=== PATIENT | male | born 1975 | race Caucasian/White ===

== ENCOUNTER 2020-03-31 10:17 | Emergency (ER) | payer OTHER, SELFPAY ==
[2020-03-31 10:29] VITALS: BP 173/102; PULSE 83; RESP 18; TEMP 36.6; O2SAT 94; BMI 48.1
--- NOTE | 2020-03-31 10:44 | CTR_ITS ---
PROCEDURE INFORMATION: Exam: CT Lumbar Spine Without Contrast Exam date and time: 03/31/2020 11:10 AM Age: 44 years old Clinical indication: Low back pain; Additional info: Lbp, sciatica left TECHNIQUE: Imaging protocol: Computed tomography images of the lumbar spine without contrast. Radiation optimization: All CT scans at this facility use at least one of these dose optimization techniques: automated exposure control; mA and/or kV adjustment per patient size (includes targeted exams where dose is matched to clinical indication); or iterative reconstruction. COMPARISON: No relevant prior studies available. RADIATION DOSE METRICS: Total DLP (mGy-cm): 3013.64 FINDINGS: Vertebrae: No acute fracture. Normal alignment. Few small osteophytes are present on the vertebral bodies. Discs/Spinal canal/Neural foramina: No significant disc protrusion. No significant spinal canal stenosis. No significant neural foraminal narrowing. Soft tissues: Unremarkable. CT/CT lumbar spine wo con* [id number] IMPRESSION: No significant abnormalities. Radiation Dose CTDIVOL = (mGy): DLP = 3013.64 (mGy-cm)
--- NOTE | 2020-03-31 10:48 | ED_ITS ---
HPI - Back Pain/Injury General: Chief Complaint: Back Pain/Injury Stated Complaint: BACK PAIN Time Seen by Provider: 03/31/20 10:23 Source: patient Mode of arrival: ambulatory Limitations: no limitations History of Present Illness: HPI Narrative: 44-year-old male patient presents to the emergency department with 6-day onset of low back pain. He has seen 3 different providers this past week for his pain. Reports went for a walk on Wednesday, 6 days ago when he felt a twinge in his back. He reports onset of severe back pain Wednesday, was prescribed muscle relaxers, was intolerant to the medication with return to his primary care provider on Wednesday. He received a steroid injection which helped. Pain worsened on Wednesday with return to his primary care at [facility], prescribed steroids which has not helped. He reports continued pain with walking, states cannot find a comfortable position. Reports pain with twisting bending. Report has to work tomorrow and is con cerned with his pain. He states pain radiates to the left groin/hip. He denies radiculopathy symptoms. Reports [id number] diabetic. He denies fever chills or urinary symptoms. He reports has attempted [id number] Lidoderm patches, Biofreeze, warm/cool compresses. MD elicited complaint: back pain Onset (ago): day(s) (6) Timing: constant and progressively worsening Severity: moderate Similar Symptoms Previously: Yes Quality: dull and aching Location: lumbar spine Radiation: groin Exacerbating factors: movement, supine positioning, sitting upright and walking Relieving factors: none Associated symptoms: Reports difficulty walking and tingling/numbness/burning; Deny abdominal pain, chills, dysuria, fever(s), nausea, urinary urgency or vomiting Review of Systems General: Reports: 10 or more systems reviewed and unremarkable except in HPI and below Const: Denies: fever(s), chills or diaphoresis Eyes: Denies: blurry vision or eye redness ENMT: Denies: throat pain, dental pain or disequilibrium Card: Denies: chest pain, palpitations or irregular heart rhythm Resp: Denies: dyspnea, productive cough, non-productive cough or wheezing GI: Denies: abdominal pain, nausea or vomiting : Denies: difficulty urinating, dysuria or urinary urgency Musc: Reports: back pain and limited range of motion; Denies: neck pain or muscle weakness Skin/Breast: Denies: rash or pruritus Neuro: Reports: difficulty walking; Denies: numbness in extremities, weakness in extremities or frequent falls Psych: Denies: anxiety or depression Agustín/Lymph: Denies: easy bruising Physical Exam Const: COMMON NORMALS: no acute distress, patient oriented x3, healthy appearing and alert GENERAL APPEARANCE: cooperative, anxious and well hydrated NUTRITIONAL APPEARANCE: obese ORIENTATION/CONSCIOUSNESS: Yes awake, Yes oriented to person, Yes oriented to place and Yes oriented to time HENMT: COMMON NORMALS: normocephalic, Normal external nose present and moist oral mucous membranes HEAD & SCALP: normocephalic NOSE: Normal external nose present Eye: COMMON NORMALS: Equal, round and reactive pupils present and EOMs intact bilaterally GENERAL EYE: appearance normal, both eyes and all related structures PUPIL: Yes Equal, round and reactive pupils present Neck/C-Spine: COMMON NORMALS: full ROM and no lymphadenopathy GENERAL: Yes normal visual inspection and Yes trachea midline CERVICAL SPINE: Yes cervical ROM normal Lymph: LYMPHATIC: no lymphadenopathy noted Chest: COMMONS NORMALS: normal inspection of the chest Resp: COMMON NORMALS: normal respiratory effort and clear to auscultation bilaterally EFFORT & INSPECTION: Yes able to speak in complete sentences AUSCULTATION: clear to auscultation bilaterally Cardio: COMMON NORMALS: regular rhythm, S1 normal heart sound present, S2 normal heart sound present and Peripheral pulses 2+ throughout RHYTHM: regular rhythm HEART SOUNDS: S1 normal heart sound present and S2 normal heart sound present PERIPHERAL PULSES: Peripheral pulses 2+ throughout GI: COMMON NORMALS: Normal to inspection, nondistended, normoactive bowel sounds present, Soft to palpation and non-tender INSPECTION: Yes normal to inspection PALPATION: Yes Soft to palpation : COMMON NORMALS: Yes no CVA tenderness BLADDER/KIDNEY EXAM: Yes no CVA tenderness and No CVA tenderness Back/Pelvis: COMMON NORMALS: no CVA tenderness and thoracic and lumbar spine normal to inspection GENERAL BACK: No CVA tenderness THORACIC SPINE/UPPER BACK: Yes normal to inspection and Yes thoracic ROM normal LUMBAR SPINE/LOWER BACK: Yes ROM limited, Yes pain with ROM, Yes lumbar spinal tenderness, Yes paraspinal muscle spasm Lumbar paraspinal muscle spasm: left and Yes straight leg raise positive left PELVIS: Yes buttocks normal SACROILIAC JOINTS: Yes SI joints normal SACRUM: no ecchymosis Extremity: COMMON NORMALS: normal to inspection and capillary refill normal Neuro: KT COMA SCALE: document GCS findings Kt coma scale eye opening: Spontaneous Farrar coma scale verbal response: Orientated Farrar coma scale motor response: Obey commands Farrar coma scale total score: 15 COMMON NORMALS: patient oriented x3 and no focal motor deficits SENSORIUM/ORIENTATION: Yes alert, Yes oriented to person, Yes oriented to place and Yes oriented to time SPEECH: speech normal GAIT: Yes Normal gait present MONOFILAMENT EXAM PERFORMED: Yes Monofilament Exam (small fiber function): L great toe: normal, L 3rd toe: normal, L 5th toe: normal, R great toe: normal, R 3rd toe: normal and R 5th toe: normal MOTOR EXAM: 5/5 motor strength present throughout Psych: COMMON NORMALS: mental status grossly normal, Normal thought process present and cooperative ACTIVITY/MOTOR BEHAVIOR: Yes appropriate eye contact THOUGHT PROCESS: Normal thought process present Skin: COMMON NORMALS: no rashes or lesions noted and turgor normal GENERAL SKIN EXAM: no rashes or lesions noted and turgor normal Course ED course: 44-year-old male presents to the emergency department with low back pain x6 days. Previous evaluation by [facility] medical staff x3 this past week. Currently on Medrol Dosepak. He is diabetic. Previously attempted cyclobenzaprine but was not able to tolerate it due to sedative effects. Negative neuropathy symptoms. Monofilament exam normal, CT scan did not reveal stenosis or disc protrusion. Hydrocodone and IM Norflex administered here in the ED, pain improved. Advised to follow-up with his primary care physician next week. Will limit activities such as no bending or twisting at the waist, no prolonged standing or sitting, 10 pound weight restriction with lifting. Discussion with the patient regarding low back pain as well as to continue with therapy as recommended by his primary care provider, results of CT scan discussed. Vital Signs: Vital signs: Vital Signs Temperature 97.9 F 03/31/20 10:29 Pulse Rate 93 03/31/20 12:16 Respiratory Rate 18 03/31/20 12:16 Blood Pressure 151/87 03/31/20 12:16 Pulse Oximetry 98 03/31/20 12:16 MDM - Back Pain/Injury Imaging Data^: Other Imaging: Radiologist's impression: [facility] [address] [place] [address] CT Scan Report Signed Patient: Hayder Laureano Unit #: [id number] : 1975 Age/Sex: 44 / M ADM Date: 03/31/20 Loc: ER Room/Bed: Attending Dr: Ordering Provider/Ordering MD: Nicole Issa Date of Service: 03/31/20 Procedure(s): CT lumbar spine wo con* [id number] Accession Number(s): [id number] Report Number: [id number] PROCEDURE INFORMATION: Exam: CT Lumbar Spine Without Contrast Exam date and time: 03/31/2020 11:10 AM Age: 44 years old Clinical indication: Low back pain; Additional info: Lbp, sciatica left TECHNIQUE: Imaging protocol: Computed tomography images of the lumbar spine without contrast. Radiation optimization: All CT scans at this facility use at least one of these dose optimization techniques: automated exposure control; mA and/or kV adjustment per patient size (includes targeted exams where dose is matched to clinical indication); or iterative reconstruction. COMPARISON: No relevant prior studies available. RADIATION DOSE METRICS: Total DLP (mGy-cm): 3013.64 FINDINGS: Vertebrae: No acute fracture. Normal alignment. Few small osteophytes are present on the vertebral bodies. Discs/Spinal canal/Neural foramina: No significant disc protrusion. No significant spinal canal stenosis. No significant neural foraminal narrowing. Soft tissues: Unremarkable. CT/CT lumbar spine wo con* [id number] IMPRESSION: No significant abnormalities. Radiation Dose CTDIVOL = (mGy): DLP = 3013.64 (mGy-cm) Dictated By: Diaz Camilo Signed By: Diaz Camilo Signed Date/Time: 03/31/20 1140 DD/ 1138 Discharge Plan Discharge Patient Disposition: Home Clinical Impression: Strain of lumbar region, Acute lumbar back pain Condition: Stable Prescriptions: New Robaxin-750 750 mg tablet 750 mg PO TID Qty: 14 RF: 0 Lidoderm 5 % adhesive patch,medicated 1 patch TOPICAL .BID Qty: 15 RF: 0 Discharge Orders: Discharge Order (Routine); Ordered 03/31/20 Ordered By: Nicole Issa Referrals: John Perez MD [Family Provider] - Discharge Diet: Usual diet Discharge Activity: Limit activity as instructed Patient Instructions: Low Back Strain (ED), Acute Low Back Pain (ED) Activity Restrictions/Additional Instructions: Follow-up with Dr. Perez next week Continue steroids as prescribed Avoid long periods of sitting/standing Return to the emergency department if you develop leg weakness, leg pain or bowel or urinary incontinence Use massage therapy such as a tennis ball to rub the area, apply warm moist heat and alternate with cool compresses to help with pain May continue with Biofreeze to the area as needed, Lidoderm patches have been prescribed to you, may change twice daily, wait 1 hour between each application Continue with therapy as prescribed by your primary care provider Tylenol, 500 mg tablets, take 2 tablets 3 times daily as needed for pain, do not take more than this amount as liver toxicity can occur Continue meloxicam Do not drive or operate machinery with use of Robaxin due to sedative effects that can occur Stand Alone Forms: Work/School Release Discharge Date/Time: 03/31/20 12:19 Coding Level of Care Code ED Telecommunication Equipment Repairer for Chg Fwd Exam Comprehensive
[2020-03-31] MEDS: HYDROcodone-acetaminophen 5-325 mg Tablet 1 TAB PO (11:14)
[2020-03-31] MEDS: orphenadrine 30 mg/mL Inj 2 mL 60 MG IM (11:15)
[2020-03-31 12:16] VITALS: BP 151/87; PULSE 93; RESP 18; O2SAT 98
== END 2020-03-31 12:19 | disposition home or self-care (01) ==
PROVIDERS: Emergency Provider Nurse Practitioner Family; Family Provider Family Medicine
DX: S39.012A Strain of muscle, fascia and tendon of lower back, initial encounter (principal); X58.XXXA Exposure to other specified factors, initial encounter
CPT/HCPCS: 12345; 72131; 96372; 99282; 99283; J2360

== ENCOUNTER → 2022-05-21 13:38 | Outpatient (BNVA) | payer OTHER, SELFPAY | PROVIDERS: Family Provider Family Medicine; PCP Family Medicine; Referring Provider Family Medicine; Visit Provider Student in an Organized Health Care Education/Training Program | DX: M25.532 Pain in left wrist (principal) | CPT/HCPCS: 73110 ==

== ENCOUNTER 2022-05-29 01:40 | Emergency (ER) | payer OTHER, SELFPAY ==
[2022-05-29 01:45] VITALS: BP 167/100; PULSE 100; RESP 18; TEMP 36.9; O2SAT 96; BMI 49.4
[2022-05-29 01:48] VITALS: BP 170/113; PULSE 103; RESP 22; O2SAT 95
--- NOTE | 2022-05-29 01:55 | ED_ITS ---
HPI - Back Pain/Injury General: Chief Complaint: Back Pain/Injury Stated Complaint: Lower Back Time Seen by Provider: 05/29/22 01:41 History of Present Illness: Patient is a 46-year-old male comes the ED with back pain. Patient has history of chronic lower back pain and sciatica. He states that yesterday he bent over to let his dogs out and felt a pain in his lower back. Most of the pain is on the left side of his lower back and radiates down to his left thigh. He rates the pain currently 9 out of 10. He has taken some ibuprofen earlier today and it has not helped. Pain worsens with any movement of torso. Denies any fall or trauma. Denies any bladder or bowel incontinence, pelvic anesthesia or weakness to lower extremities. Associated symptoms: Deny abdominal pain, chills, dysuria, fatigue, fever(s), hematuria, nausea or vomiting Review of Systems Const: Denies: fever(s), chills or fatigue Eyes: Denies: change in vision or eye discomfort ENMT: Denies: throat pain, odynophagia, nasal discharge or nasal congestion Card: Denies: chest pain, palpitations, edema, swelling of feet/ankles, dyspnea on exertion or orthopnea Resp: Denies: dyspnea, productive cough or non-productive cough GI: Denies: abdominal pain, nausea, vomiting, diarrhea, constipation or hematochezia : Denies: flank pain, difficulty urinating, dysuria or hematuria Musc: Reports: back pain; Denies: neck pain or extremity swelling Skin/Breast: Denies: rash or new lesions Neuro: Denies: headache(s), numbness in extremities or weakness in extremities [facility] ED PFSH: Medical History Arthritis of carpometacarpal (CMC) joint of left thumb Physical Exam Const: COMMON NORMALS: patient oriented x3 HENMT: COMMON NORMALS: normocephalic HEAD & SCALP: normocephalic MOUTH: Normal oral and palatal mucosa present THROAT: posterior oropharynx normal and uvula midline Neck/C-Spine: COMMON NORMALS: supple GENERAL: Yes normal visual inspection Resp: COMMON NORMALS: normal respiratory effort, No retractions, No use of accessory muscles and clear to auscultation bilaterally AUSCULTATION: clear to auscultation bilaterally Cardio: COMMON NORMALS: regular rate, regular rhythm, S1 normal heart sound present, S2 normal heart sound present, No gallops present (Cardio), No clicks present (Cardio), No murmurs present (Cardio) and Peripheral pulses 2+ throughout RATE: regular rate RHYTHM: regular rhythm HEART SOUNDS: S1 normal heart sound present and S2 normal heart sound present PERIPHERAL PULSES: Peripheral pulses 2+ throughout GI: COMMON NORMALS: Normal to inspection, nondistended, normoactive bowel sounds present, Soft to palpation, non-tender and no masses PALPATION: Yes Soft to palpation : COMMON NORMALS: Yes no CVA tenderness BLADDER/KIDNEY EXAM: Yes no CVA tenderness Back/Pelvis: COMMON NORMALS: no CVA tenderness LUMBAR SPINE/LOWER BACK: Yes pain with ROM, No lumbar spinal tenderness and Yes paraspinal muscle tenderness Lumbar paraspinal muscle tenderness: left left lumbar paraspinal muscle tenderness: L4 and L5 Extremity: COMMON NORMALS: normal to inspection Neuro: COMMON NORMALS: patient oriented x3 GAIT: Yes Normal gait present Skin: GENERAL SKIN EXAM: dry skin Course Vital Signs: Vital signs: Vital Signs Temperature 98.4 F 05/29/22 01:45 Pulse Rate 103 H 05/29/22 01:48 Respiratory Rate 22 H 05/29/22 01:59 Blood Pressure 170/113 05/29/22 01:48 Pulse Oximetry 98 05/29/22 01:59 Oxygen Delivery Me thod 05/29/22 01:48 MDM - Back Pain/Injury Medical Decision Making Patient is a 46-year-old male comes the ED with back pain. Patient has history of chronic lower back pain and sciatica. He states that yesterday he bent over to let his dogs out and felt a pain in his lower back. Most of the pain is on the left side of his lower back and radiates down to his left thigh. He rates the pain currently 9 out of 10. He has taken some ibuprofen earlier today and it has not helped. Pain worsens with any movement of torso. Denies any fall or trauma. Denies any bladder or bowel incontinence, pelvic anesthesia or weakness to lower extremities. Vitals are stable. Patient has lumbar paraspinal muscle tenderness on the left side at the L4-L5 region. Rest of exam is benign. Patient was given a shot of morphine, muscle relaxer and steroid here in the ED and his symptoms improved. He was diagnosed with back pain and stable for discharge home. Sent home with a prescription for NSAID, steroid and muscle relaxer. Told to follow-up with PCP in the next week for reevaluation. Return to ED precautions given. Patient understood and agreed with plan. Discharge Plan Discharge Patient Disposition: Home Clinical Impression: Back pain Condition: Stable Prescriptions: New cyclobenzaprine 10 mg tablet 10 mg PO BID PRN (Reason: muscle spasm) Qty: 20 0RF prednisone 20 mg tablet 20 mg PO BID 3 Days Qty: 6 0RF ibuprofen 800 mg tablet 800 mg PO Q8H PRN (Reason: pain) Qty: 30 0RF No Action Robaxin-750 750 mg tablet 750 mg PO TID Qty: 14 0RF Rx Instructions: take 1 PO TID PRN muscle spasm Lidoderm 5 % adhesive patch,medicated 1 patch TOPICAL .BID Qty: 15 0RF Rx Instructions: leave on most painful area for up to 12 hrs - leave off 1 hour between application Discharge Orders: Discharge ED (Routine); Ordered 05/29/22 Ordered By: Addison Doe Referrals: John Perez MD [Primary Care Provider] - Discharge Diet: Regular Discharge Activity: Increase activity as tolerated Patient Instructions: Back Pain (ED) Activity Restrictions/Additional Instructions: Follow-up with medical provider as directed in the next 5 to 7 days for reevaluation. Take medications as prescribed. Here prednisone can cause her blood sugars to elevate so monitor blood sugars closely while taking prednisone. Return to the ER or your medical provider if condition worsens. Please read and understand discharge instructions. Thank you for choosing [facility] for your healthcare needs today. Please realize this is an emergency room and that we are providing you with a me dical screening exam and this may not be complete and all inclusive of all the testing and or work up that you may need to determine your ailment or severity of your illness. It is very important that you follow up as instructed or that you return to the Emergency Department should you have concerns or if your condition changes or worsens in any way. Coding Level of Care Code ED Christmas Tree Grader for Evan Fwelicia Exam Comprehensive
[2022-05-29 01:59] VITALS: RESP 22; O2SAT 98
[2022-05-29] MEDS: orphenadrine 30 mg/mL Inj 2 mL 60 MG IM (01:59)
[2022-05-29] MEDS: morphine 4 mg/mL SDV 1 mL IM (01:59)
[2022-05-29] MEDS: ketorolac 60 mg/2 mL INJ IM (02:29)
--- NOTE | 2022-05-29 02:29 | PC.NURSE ---
Medication sent home Per provider, BRAR 7.5/325 x 1 tab sent home with pt to take later on. Witnessed with Milla Red RN
[2022-05-29 02:30] VITALS: BP 194/102; PULSE 93; RESP 18; O2SAT 96
== END 2022-05-29 02:41 | disposition home or self-care (01) ==
PROVIDERS: Emergency Provider Physician Assistant; PCP Family Medicine
DX: M54.50 Low back pain, unspecified (principal)
CPT/HCPCS: 96372; 99284; J1885; J2270; J2360; J2930

== ENCOUNTER 2022-06-02 08:31 | Day surgery (SDC) | payer OTHER, SELFPAY ==
[2022-06-01 11:28] VITALS: BMI 48.6
[2022-06-02] VITALS (9 sets, daily range): BP systolic 110–144; BP diastolic 62–99; PULSE 83–90; RESP 12–18; TEMP 36.3–36.5; O2SAT 91–96
--- NOTE | 2022-06-02 | XR_ITS ---
WS: [id number] XR finger LT min 2V [id number] REASON FOR EXAM: VICK PICS FINDINGS: Osteotomy of the carpal bones from the base the thumb. Preliminary image of arthrodesis between the b ase of the first and second metacarpals. XR/XR finger LT min 2V [id number] IMPRESSION: Osteotomy and arthrodesis base of the left thumb.
[2022-06-02 09:22] LABS: Glucose Point of Care 277 mg/dL (70-110)
[2022-06-02] MEDS: acetaminophen 1,000 MG/100 ML PIGGYBACK 400 MG IV (09:26)
[2022-06-02] MEDS: ketorolac 30 mg/mL INJ IVP (09:27)
[2022-06-02] MEDS: insulin regular-human 100 units/1 mL 10 UNIT IVP ×2 (09:43→10:23)
[2022-06-02 10:19] LABS: Glucose Point of Care 258 mg/dL (70-110)
[2022-06-02 10:47] LABS: Glucose Point of Care 199 mg/dL (70-110)
--- NOTE | 2022-06-02 11:05 | ANES.PREANE2 ---
Pre-Anesthetic Assessment Height/Weight: Height 1.91 m Weight 176.447 kg O2 Del Method 06/02/22 09:04 Preop Diagnosis: left thumb CMC joint arthritis, failed conservative treatment Operation Date: 06/02/22 10:15 Proposed Procedures p Left thumb carpometacarpal joint arthroplasty 43640 ,M18.12(Left) - Martinez Doe DO Familial anesthetic complications: None Was Beta [place] taken within 24 hours: N/A Was Clonidine taken within 24 hours: N/A Last intake: Intake Last Liquid Date 06/01/22 Last Liquid Time 23:30 Last Solid Date 06/01/22 Last Solid Time 20:00 Social No alcohol and No tobacco Exam alert, oriented x 3, clear to auscultation bilaterally and regular rate & rhythm Airway Mallampati: Class IV Dentition: chipped Metabolic Diabetes Mellitus and Morbid Obesity Anesthetic Plan ASA status: 3 Anesthesia: General and Regional (specify below) Risk of > 500 ml blood loss (7ml/kg in children): No Medications/Allergies Home Medications Medication Instructions Recorded Confirmed Last Taken Type cyclobenzaprine 10 mg tablet 10 mg PO BID PRN muscle spasm #20 05/29/22 06/01/22 06/01/22 05:00 Rx tabs ibuprofen 800 mg tablet 800 mg PO Q8H PRN pain #30 tabs 05/29/22 06/01/22 06/01/22 10:00 Rx bupropion HCl 150 mg 24 hr tablet, 150 mg PO 1XD 06/01/22 06/01/22 06/01/22 07:00 History extended release bupropion HCl 300 mg 24 hr tablet, 300 mg PO 1XD 06/01/22 06/01/22 06/01/22 07:00 History extended release dapagliflozin 5 mg tablet (Farxiga) 5 mg PO QAM 06/01/22 06/01/22 06/01/22 05:00 History dulaglutide 1.5 mg/0.5 mL 1.5 mg SUBCUT DIRECTED 06/01/22 06/01/22 05/25/22 20:00 History subcutaneous pen injector (Trulicity) glimepiride 4 mg tablet (Amaryl) 4 mg PO DAILY 06/01/22 06/01/22 06/01/22 05:00 History insulin glargine 100 unit/mL (3 28 unit SUBCUT BEDTIME 06/01/22 06/01/22 05/31/22 20:00 History mL) subcutaneous pen (Basaglar KwikPen U-100 Insulin) metformin 1,000 mg tablet 1,000 mg PO BID 06/01/22 06/01/22 06/01/22 05:00 History Allergies Allergy/AdvReac Type Severity Reaction Status Date / Time No Known Allergies Allergy Verified 05/29/22 02:08 [facility] Anesthesia Medical History Arthritis of carpometacarpal (CMC) joint of left thumb Data Anesthesia Cardiac Studies: No Data to Display
--- NOTE | 2022-06-02 11:45 | P.HPUD_ITS ---
Surgery/Procedure H&P Update DATE OF PROCEDURE: June 02, 2022 DATE H&P PERFORMED: 05/21/22 CHANGES TO PREVIOUS DOCUMENTATION: None. Once again had detailed discussion about his treatment options. This point time work he will definitely be able to modify his activities and not do as much of heavy lifting. I did discuss with him also the option of a CMC denervation for just pain relief. Ultimately patient only would like to perform a 1 time procedure if at all possible just given his time away from work and providing for his family. I feel his denervation as we talked about would be roughly 50 to 70% of pain relief however can have some unpredictability and may need further surgery following. At this point time we both agreed in his best interest would be a left CMC basal joint arthroplasty due to more predictability and patient will be able to adjust his work modifications accordingly. Patient understands agrees with current plan. All questions answered. PREOP DIAGNOSIS: left thumb CMC joint arthritis, failed conservative treatment PRIMARY INDICATION FOR PROCEDURE: Left thumb CMC joint arthritis, failed conservative treatment PLANNED PROCEDURE: Operation Date: 06/02/22 10:15 Proposed Procedures p Left thumb carpometacarpal joint arthroplasty 60555 ,M18.12(Left) - Martinez johnson, DO
[2022-06-02] MEDS: ceFAZolin 3,000 MG in sodium chloride 0.9% (100 ml) 100 ML 200 MG IV (12:40)
[2022-06-02 13:42] LABS: Glucose Point of Care 219 mg/dL (70-110)
[2022-06-02] MEDS: insulin regular-human 100 units/1 mL 8 UNIT IVP (13:48)
--- NOTE | 2022-06-02 14:00 | PM.OP2 ---
Brief Operative Note Date of procedure: 06/06/22 Pre-op diagnosis: Left thumb basal joint CMC degenerative joint disease failed conservative t Post-op diagnosis: same Procedure Done: Left thumb basal joint arthroplasty with APL tendon interposition Surgeon: Martinez Doe Estimated blood loss (mL): 5 Complications: none Post-op Plan: Patient taken to PACU in stable condition recovering well. Will receive appropriate discharge instructions as well as pain medication postoperatively. Currently in a thumb spica splint. We will get him in with OT hand therapy for CMC arthroplasty protocol. Patient understands and agrees with current plan. All questions answered. Condition: stable Disposition: same day Coding Level of Care Code Acute Code for Evan Fwelicia
--- NOTE | 2022-06-02 14:05 | PM.PACU ---
PACU note Narrative: Patient seen and evaluated in PACU. Recovering well. Splint on in place clean dry and intact. Fingertips warm well perfused. Patient received regional anesthesia prior to surgery. Unable assess motor or sensory at this time. Exam: awake Disposition: discharged
[2022-06-02] MEDS: gelatin 12-7 mm Sponge 1 EACH TOPICAL (14:09)
--- NOTE | 2022-06-02 14:10 | PM.OP ---
Operative Report Date of procedure: June 06, 2022 Pre-op diagnosis: Preop Diagnosis left thumb CMC joint arthritis, failed conservative treatment Post-op diagnosis: same Procedure done: Left thumb basal joint arthroplasty with APL tendon slip interposition and Arthrex fiber lock suspension no plastic Implants: Arthrex fiber lock suspension O plasty implant kit Surgeon: Martinez Doe Estimated blood loss (mL): 5 Tourniquet time (min): 64 IV fluids: See anesthesia record Complications: none Condition: stable Disposition: same day Brief History: Patient's been seen and worked up in the outpatient setting and findings consistent with complete collapse of the left thumb CMC joint with failed conservative treatment of prior joint injections. At this point time for pain control as well as to maintain some range of motion through shared decision making we elected to proceed with a left thumb CMC joint arthroplasty. We did talk about other treatment options as far as arthrodesis versus CMC denervation but at this point time through shared decision making we agreed to proceed with a left thumb CMC joint arthroplasty for more predictability and outcomes and hopefully a one-time procedure for him in as he needs to continue to work. We did talk about him potentially have to modify his work activities which is a his work and job is very accommodating. He understands risk benefits complication alternatives surgical and nonsurgical treatment options. Understands his risks with surgery he agrees to proceed. Consent was reviewed and signed with patient. All questions answered. Procedure: Patient seen evaluated in the preoperative holding area. Consent was signed and reviewed with patient. Correct extremity marked. Once cleared by anesthesia he underwent a regional anesthesia and was taken back to the operative suite. Patient was placed in supine position all bony prominences well-padded patient was properly secured to the bed. Underwent anesthesia for the anesthesia department. A armboard was placed to the left upper extremity a nonsterile tourniquet applied to the left upper arm. Once appropriately anesthetized his left upper extremity was then prepped and draped in standard orthopedic fashion. Final timeout performed. Patient received appropriate preoperative antibiotics. Esmarch tourniquet was used exsanguinate the left upper extremity to 300 mmHg. I then utilized a 15 blade in standard longitudinal fashion directly over the left thumb basal joint. Sharp scalpel incision was made through skin only. I then switched to Littler dissection scissors and dissected out the dorsal cutaneous branches which were protected throughout this case. I then identified the APL and EPL tendons. I then performed a first dorsal compartment release under direct visualization with loupe magnification. At this point time I then mobilized the tendons with a blunt wheat and went through this interval. Next I was directly onto the CMC joint dorsal capsule. I then subsequently utilized my dissection scissors to dissect out the radial artery which was then identified and protected by my case assistant throughout this case with a Kasdan retractor. Once I identified the radial artery and dorsal branch I then subsequently performed my capsulotomy of the first CMC joint. I then introduced a [place] into the arthritic space at the first CMC joint. This was confirmed with mini C arm to be the appropriate bone prior to performing my trapeziectomy. The trapezium was then shelled out and its entirety with a McClamary elevator with care to protect and not injure any of my remaining carpal bone articular cartilage as well as not to damage the/injure the radial artery as it was protected throughout the case. This was then removed and identified the FCR within the floor of my incision. At this point time I thoroughly irrigated and removed of all residual bony debris. A [place] was placed into the STT joint and this was found to be free of arthritic changes. I then subsequently plan to proceed with utilizing Arthrex fiber lock suspension of plasty kit which was then opened and then subsequently drilled into the second metacarpal base. Once I confirm my appropriate placement with mini C arm all suture anchor. Once this was confirmed appropriate placement I then drilled the impacted and deployed the bicortical suture anchor. This had excellent tension and could lift the arm off of the table with its fixation. I then subsequently identified the radial aspect of the first metacarpal and at its mid substance on the radial aspect I subsequently drilled tapped and holding the thumb in appropriate abduction with not over distraction keeping it in line with the base of the second and subsequently loaded under appropriate tension and thumb positioning keeping the thumb in abduction and appropriate length impacted this suture anchor which had excellent fixation and the excess suture was then removed. This was then confirmed to have excellent axial stability and an appropriate suspension of plasty. In order to help add with fixation interposition within the voided space from the trapeziectomy I then identified a slip of the APL which was then harvested proximally and then weaved this through the FCR tendon sheath and then tied this onto the APL tendon itself which created a soft tissue interposition as well as added appropriate abduction to the thumb with appropriate thumb position. This was then secured with 2 horizontal mattress stitches with 2-0 FiberWire. I then took the excess of the APL tendon and then placed this within the voided space as a interposition. I then subsequently had the tourniquet deflated. Hemostasis was satisfactory. I then took some Gelfoam to add for soft tissue and interposition within the voided space. I then closed the capsule with Monocryl suture. Wound bed was once again thoroughly irrigated. I then closed the incision with deep 3-0 Vicryl suture as well as running Monocryl suture and Steri-Strips with Dermabond glue. Final x-rays with mini C arm were then taken showing stable trapeziectomy with soft tissue and suture anchor interposition. Thumb had excellent axial stability as well as appropriate positioning. Patient was then dressed with 4 x 4's ABD Curlex and a thumb spica splint. With an Ayden wrap. Patient was awakened from anesthesia and taken to PACU in stable condition. Disposition: Patient taken to PACU in stable condition recovering well. Patient will receive appropriate discharge instructions as well as pain medication postoperatively. Patient will follow therapy protocol with OT hand therapy for basal joint arthroplasty. Patient understands agrees with current plan. All questions answered. We will see me in the office in 2 weeks.
[2022-06-02 14:25] LABS: Glucose Point of Care 201 mg/dL (70-110)
[2022-06-02 14:50] LABS: Glucose Point of Care 209 mg/dL (70-110)
[2022-06-02] MEDS: HYDROcodone-acetaminophen 5-325 mg Tablet 1 TAB PO (15:38)
--- NOTE | 2022-06-02 15:45 | ANE.PACU2 ---
Inpatient post-anesthesia follow up: Airway intact: Yes Vital signs: Temperature 97.7 F Pulse Rate 89 Respiratory Rate 18 Blood Pressure 140/89 Pulse Oximetry 93 Oxygen Delivery Me thod Room Air Oxygen Flow Rate 2 Fraction of Inspir ed Oxygen Hydration adequate: Yes Nausea and vomiting: No Pain level: 1 Mental status: Baseline
== END 2022-06-02 15:50 | disposition home or self-care (01) ==
PROVIDERS: PCP Family Medicine; Visit Provider Student in an Organized Health Care Education/Training Program
PROC: (CPT 26535; principal; 2022-06-02 10:05)
DX: M18.12 Unilateral primary osteoarthritis of first carpometacarpal joint, left hand (principal); E11.9 Type 2 diabetes mellitus without complications; E66.01 Morbid (severe) obesity due to excess calories; Z68.42 Body mass index [BMI] 45.0-49.9, adult; Z79.84 Long term (current) use of oral hypoglycemic drugs; Z79.4 Long term (current) use of insulin
CPT/HCPCS: 25447; 36416; 73140; 76000; 82962; C1713; J0131; J0690; J1100; J1815; J1885; J2405; J2704; J2795; J3010; J3490

== ENCOUNTER 2022-06-10 07:29 | Outpatient (RCR) | payer OTHER, SELFPAY | END 2022-06-23 23:59 | disposition home or self-care (01) | LOC: SOT 07:29 | PROVIDERS: PCP Family Medicine; Visit Provider Student in an Organized Health Care Education/Training Program | DX: Z96.691 Finger-joint replacement of right hand (principal) | CPT/HCPCS: 97165; L3807 ==

== ENCOUNTER 2022-06-24 06:00 | Outpatient (RCR) | payer OTHER, SELFPAY | END 2022-07-21 23:59 | disposition home or self-care (01) | LOC: SOT 06:00 | PROVIDERS: PCP Family Medicine; Visit Provider Student in an Organized Health Care Education/Training Program | DX: Z47.89 Encounter for other orthopedic aftercare (principal) | CPT/HCPCS: 97018; 97110; 97140 ==

== ENCOUNTER 2022-07-22 06:00 | Outpatient (RCR) | payer OTHER, SELFPAY | END 2022-08-21 23:59 | disposition home or self-care (01) | LOC: SOT 06:00 | PROVIDERS: PCP Family Medicine; Visit Provider Student in an Organized Health Care Education/Training Program | DX: Z96.692 Finger-joint replacement of left hand (principal) | CPT/HCPCS: 97018; 97035; 97110; 97140 ==

== ENCOUNTER 2022-11-15 03:21 | Emergency (ER) | payer OTHER, SELFPAY ==
[2022-11-15 03:28] VITALS: PULSE 82; RESP 20; TEMP 36.7; O2SAT 92; BMI 47.5
[2022-11-15 04:00] VITALS: BP 159/97
[2022-11-15] MEDS: dexamethasone 4 mg Tablet 6 MG PO (04:47)
[2022-11-15] MEDS: amoxicillin-clav 875-125 mg Tablet 1 TAB PO (04:48)
[2022-11-15] MEDS: oxyCODONE-APAP 5-325 mg Tablet 2 TAB PO (04:48)
[2022-11-15 05:01] VITALS: BP 164/98; PULSE 81; RESP 18; O2SAT 94
--- NOTE | 2022-11-15 05:28 | ED_ITS ---
HPI - Neck Pain/Injury General: Chief Complaint: Neck Pain/Injury Stated Complaint: jaw/neck pain right side Time Seen by Provider: 11/15/22 03:44 History of Present Illness: 46-year-old male with right-sided facial pain, it radiates to his neck. Is been going on 3 days or so. Also radiates to his jaw. He is not aware of a sore tooth. No fever. He has had some congestion and postnasal drip. He has had a mild cough. Associated symptoms: Denies dizziness, headache(s) or nausea Review of Systems Const: Denies: fever(s), chills or body aches Eyes: Denies: change in vision Card: Denies: chest pain or palpitations Resp: Reports: non-productive cough; Denies: dyspnea, productive cough or wheezing GI: Denies: abdominal pain, nausea, vomiting, diarrhea or hematochezia Skin/Breast: Denies: rash Neuro: Denies: headache(s), weakness in extremities, dizziness or confusion PFS ED PFSH: Medical History Arthritis of carpometacarpal (CMC) joint of left thumb Physical Exam Const: COMMON NORMALS: no acute distress GENERAL APPEARANCE: cooperative; not ill appearing and not frail appearing HENMT: COMMON NORMALS: normocephalic and Normal external nose present HEAD & SCALP: normocephalic FACE & SINUS: face symmetric and sinus tenderness maxillary (right) NOSE: Normal external nose present Eye: COMMON NORMALS: Equal, round and reactive pupils present and EOMs intact bilaterally PUPIL: Yes Equal, round and reactive pupils present Neck/C-Spine: GENERAL: Yes trachea midline Chest: CHEST: Yes Symmetrical chest wall rise Resp: COMMON NORMALS: normal respiratory effort, No retractions, No use of accessory muscles and clear to auscultation bilaterally AUSCULTATION: clear to auscultation bilaterally Cardio: COMMON NORMALS: regular rate and regular rhythm RATE: regular rate RHYTHM: regular rhythm GI: COMMON NORMALS: Normal to inspection, nondistended, normoactive bowel sounds present Extremity: COMMON NORMALS: no pedal edema Neuro: KT COMA SCALE: document GCS findings Kt coma scale eye opening: Spontaneous Kt coma scale verbal response: Orientated Kt coma scale motor response: Obey commands [place] coma scale total score: 15 SENSORY EXAM: Yes extremities (intact) Psych: COMMON NORMALS: speech normal SPEECH: Yes normal speech Skin: COMMON NORMALS: no rashes or lesions noted GENERAL SKIN EXAM: no rashes or lesions noted Course Vital Signs: Vital signs: Vital Signs Temperature 98.1 F 11/15/22 03:28 Pulse Rate 81 11/15/22 05:01 Respiratory Rate 18 11/15/22 05:01 Blood Pressure 164/98 11/15/22 05:01 Pulse Oximetry 94 11/15/22 05:01 Oxygen Delivery Me thod Room Air 11/15/22 03:28 MDM - Neck Pain/Injury Medical Decision Making Patient clinically has maxillary sinusitis on the right. He will be treated as such. Antibiotics. 1 dose of steroid for pain and swelling. Anti- inflammatories for pain. Outpatient follow-up. Discharge Plan Discharge Patient Disposition: Home Clinical Impression: Sinusitis Condition: Stable Prescriptions: New ketorolac 10 mg tablet 10 mg PO TID PRN (Reason: pain) Qty: 10 0RF amoxicillin-pot clavulanate 875-125 mg tablet 1 tab PO BID Qty: 20 0RF Discontinued ibuprofen 800 mg tablet 800 mg PO Q8H PRN (Reason: pain) Qty: 30 0RF No Action metformin 1,000 mg tablet 1,000 mg PO BID glimepiride [Amaryl] 4 mg tablet 4 mg PO DAILY bupropion HCl 300 mg tablet extended release 24 hr 300 mg PO 1XD bupropion HCl 150 mg tablet extended release 24 hr 150 mg PO 1XD insulin glargine [Basaglar KwikPen U-100 Insulin] 100 unit/mL (3 mL) insulin pen 28 unit SUBCUT BEDTIME Farxiga 5 mg tablet 5 mg PO QAM Trulicity 1.5 mg/0.5 mL pen injector 1.5 mg SUBCUT DIRECTED Rx Instructions: weekly cyclobenzaprine 10 mg tablet 10 mg PO BID PRN (Reason: muscle spasm) Qty: 20 0RF Discharge Orders: Discharge ED (Routine); Ordered 11/15/22 Ordered By: Kalia Kay Referrals: John Perez MD [Primary Care Provider] - 1-3 days Patient Instructions: Sinusitis (ED), Opioid Safety, Pain Management Coding Level of Care Code 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
== END 2022-11-15 05:02 | disposition home or self-care (01) ==
PROVIDERS: Emergency Provider Emergency Medicine; PCP Family Medicine
DX: J32.9 Chronic sinusitis, unspecified (principal); Z79.85 Long-term (current) use of injectable non-insulin antidiabetic drugs; Z79.84 Long term (current) use of oral hypoglycemic drugs; Z79.4 Long term (current) use of insulin
CPT/HCPCS: 99283; J8540

== ENCOUNTER 2024-08-24 08:49 | Emergency (ER) | payer OTHER, SELFPAY ==
[2024-08-24] VITALS (8 sets, daily range): BP systolic 117–168; BP diastolic 68–82; PULSE 73–89; RESP 13–19; TEMP 37.1; O2SAT 88–96; BMI 48.7
--- NOTE | 2024-08-24 09:39 | XR_ITS ---
WS: [id number] XR chest 1V portable [id number] REASON FOR EXAM: dyspnea/cough FINDINGS: The heart and the mediastinum are within normal limits. Calcified granulomatous disease in both hemithoraces. No acute pulmonary parenchymal or pleural abnormalities identified. Mild degenerative spondylosis in the thoracic spine. XR/XR chest 1V portable [id number] IMPRESSION: No acute chest abnormality.
--- NOTE | 2024-08-24 09:39 | ECG_ITS ---
[facility] Test Date: 2024-08-24 Pat Name: Hayder Laureano Department: Room: Gender: Male Benefits Advisor: : 1975 Requested By: Julien Chicas Order Number: [id number] Arcelia MD: Pablo Gustafson M.D. Measurements Intervals [place] Rate: 89 P: 26 MD: 156 QRS: 52 QRSD: 142 T: -13 QT: 352 QTc: 430 Interpretive Statements SINUS RHYTHM RIGHT BUNDLE BRANCH BLOCK [120+ ms QRS DURATION, UPRIGHT V1, 40+ ms S IN I/aVL/V4/V5/V6] MODERATE T-WAVE ABNORMALITY, CONSIDER LATERAL ISCHEMIA [-0.1+ mV T-WAVE IN I/aVL/V5/V6] MODERATE T-WAVE ABNORMALITY, CONSIDER INFERIOR ISCHEMIA [-0.1+ mV T-WAVE IN II/aVF] No previous ECG available for comparison Electronically Signed On 08-24-2024 17:34:13 CDT by Pablo Gustafson M.D. [id number]
--- NOTE | 2024-08-24 09:45 | W.ED.CHESTPA ---
HPI - Chest Pain General: Chief Complaint: Chest Pain Stated Complaint: chest pains Time Seen by Provider: 08/24/24 09:39 History of Present Illness: 48-year-old male presents emergency room with complaint of chest pain. States it began overnight he said a few years ago he had an episode of chest pain was watched over the hospital and ultimately told everything was fine he does not recall doing, stress testing. He is diabetic overweight uses chewing tobacco but does not smoke. He has not had any history of any DVT or PE that he is aware of has not recently had any fever sweats or chills or productive cough. Has had some sinus drainage. The only thing he notices exacerbates the discomfort is when he he breathes. No flulike symptoms. Associated symptoms: Deny abdominal pain, dyspnea or fever(s) Related Data Home Medications ?Medication ?Instructions ?Recorded ?Confirmed dapagliflozin propanediol 5 mg 5 mg PO QAM 06/01/22 08/24/24 tablet (Farxiga) atorvastatin 20 mg tablet 20 mg PO DAILY 08/24/24 08/24/24 glimepiride 4 mg tablet 4 mg PO DAILY 08/24/24 08/24/24 hydrocodone 7.5 mg-acetaminophen 1 tab PO BID PRN Pain 08/24/24 08/24/24 325 mg tablet lamotrigine 100 mg tablet 100 mg PO DAILY 08/24/24 08/24/24 losartan 50 mg tablet 50 mg PO DAILY 08/24/24 08/24/24 paroxetine HCl 40 mg tablet 40 mg PO DAILY 08/24/24 08/24/24 prednisone 10 mg tablet 10 mg PO DAILY PRN 20ds 08/24/24 08/24/24 semaglutide 1 mg/dose (4 mg/3 mL) 1 mg SUBCUT Q7D 08/24/24 08/24/24 subcutaneous pen injector (Ozempic) Previous Rx's ?Medication ?Instructions ?Recorded aspirin 81 mg tablet,delayed 81 mg PO DAILY #30 tabs 08/24/24 release isosorbide mononitrate 30 mg 30 mg PO DAILY #30 tabs 08/24/24 tablet,extended release 24 hr Allergies Allergy/AdvReac Type Severity Reaction Status Date / Time No Known Drug Allergies Allergy Unknown Verified 08/24/24 09:15 Review of Systems Const: Denies: fever(s) or chills Card: Denies: chest pain Resp: Denies: dyspnea GI: Denies: abdominal pain : Denies: dysuria, urinary frequency or urinary urgency Musc: Denies: neck pain or back pain Skin/Breast: Denies: rash PFSH ED PFSH: Medical History Arthritis of carpometacarpal (CMC) joint of left thumb Physical Exam Const: COMMON NORMALS: no acute distress GENERAL APPEARANCE: cooperative and comfortable ORIENTATION/CONSCIOUSNESS: Yes awake, Yes oriented to person, Yes oriented to place and Yes oriented to time HENMT: COMMON NORMALS: normocephalic, atraumatic and hearing grossly normal bilaterally HEAD & SCALP: normocephalic and atraumatic Resp: COMMON NORMALS: normal respiratory effort, No retractions, No use of accessory muscles and clear to auscultation bilaterally AUSCULTATION: clear to auscultation bilaterally Cardio: COMMON NORMALS: regular rate, regular rhythm and No murmurs present (Cardio) RATE: regular rate RHYTHM: regular rhythm GI: COMMON NORMALS: Soft to palpation and No hepatosplenomegaly present AUSCULTATION: Yes normoactive bowel sounds PALPATION: Yes Soft to palpation, No Tenderness to palpation present (GI), No Guarding due to palpation present (GI) and Yes No hepatosplenomegaly present Extremity: COMMON NORMALS: normal to inspection, capillary refill normal, no clubbing, cyanosis or edema, no calf tenderness and no pedal edema Neuro: SENSORIUM/ORIENTATION: Yes oriented to person, Yes oriented to place and Yes oriented to time Skin: COMMON NORMALS: no rashes or lesions noted GENERAL SKIN EXAM: no rashes or lesions noted Course Vital Signs: Vital signs: Vital Signs Temperature 98.7 F 08/24/24 09:10 Pulse Rate 77 08/24/24 13:11 Respiratory Rate 18 08/24/24 12:00 Blood Pressure 146/82 08/24/24 13:11 Pulse Oximetry 93 08/24/24 13:11 Oxygen Delivery Me thod Room Air 08/24/24 09:10 MDM - Chest Pain Medical Decision Making EKG and cardiac enzymes did not show any acute coronary syndrome. Patient states his symptoms are completely resolved at this point. He does have sleep apnea we noted significant desaturations whenever he fell asleep but immediately improved soon as he woke up. Will discharge the patient home I will start him on aspirin daily as well isosorbide mononitrate set him up for an outpatient Lexiscan sestamibi stress test return if he has further chest pain reviewed findings with the patient. Medical Records I reviewed the patient's medical records. Lab Data I reviewed the patient's lab results. 08/24/24 09:44 08/24/24 09:44 Radiology Impressions Chest X-Ray 08/24/24 09:39 IMPRESSION: No acute chest abnormality. Laboratory Results WBC 6.29 10^3/uL (3.29-11.43) 08/24/24 09:44 RBC 5.22 10^6/uL (3.85-5.65) 08/24/24 09:44 Hgb 15.10 g/dL (11.27-16.99) 08/24/24 09:44 Hct 44.6 % (37-53) 08/24/24 09:44 MCV 85.4 fl (82-101) 08/24/24 09:44 MCH 28.9 pg (27-33) 08/24/24 09:44 MCHC 33.9 g/dL (30-55) 08/24/24 09:44 RDW 12.6 % (12.1-15.1) 08/24/24 09:44 Plt Count 192 10^3/cmm (157-399) 08/24/24 09:44 MPV 9.2 fL (7.4-10.4) 08/24/24 09:44 Neut % (Auto) 67.3 % 08/24/24 09:44 Lymph % (Auto) 22.1 % 08/24/24 09:44 Wink[place] % (Auto) 8.4 % 08/24/24 09:44 Eos % (Auto) 1.1 % 08/24/24 09:44 Baso % (Auto) 0.8 % 08/24/24 09:44 Neut # (Auto) 4.23 10^3/uL (1.8-7.7) 08/24/24 09:44 Lymph # (Auto) 1.4 10^3/uL (0.8-4.8) 08/24/24 09:44 [place]inkler # (Auto) 0.5 10^3/uL (0.2-0.9) 08/24/24 09:44 Eos # (Auto) 0.1 10^3/uL (0.0-0.8) 08/24/24 09:44 Baso # (Auto) 0.1 10^3/uL (0.0-0.1) 08/24/24 09:44 Nucleated RBC % (auto) 0 % 08/24/24 09:44 Nucleated RBCs # 0.0 /100WBC 08/24/24 09:44 Sodium 135 mmol/L (136-145) L 08/24/24 09:44 Potassium 4.5 mmol/L (3.5-5.1) 08/24/24 09:44 Chloride 98 mmol/L (98-107) 08/24/24 09:44 Carbon Dioxide 25 mmol/L (22-29) 08/24/24 09:44 Anion Gap 16.5 (5-19) 08/24/24 09:44 BUN 13 mg/dL (6-20) 08/24/24 09:44 Creatinine 0.9 mg/dL (0.7-1.2) 08/24/24 09:44 GFR Calculation 89.7 mL/min (90-130) L 08/24/24 09:44 Glucose 175 mg/dL (65-115) H 08/24/24 09:44 Calculated Osmolality 284 mOsm/kg (285-295) L 08/24/24 09:44 Calcium 9.5 mg/dL (8.5-10.5) 08/24/24 09:44 Total Bilirubin 0.3 mg/dL (0.15-1.2) 08/24/24 09:44 AST 29 U/L (0-40) 08/24/24 09:44 ALT 46 U/L (0-41) H 08/24/24 09:44 Alkaline Phosphatase 74 U/L (40-130) 08/24/24 09:44 Troponin T Baseline 14 ng/L (0-15) 08/24/24 09:44 Troponin T 120 Minute 11.25 ng/L (0-15) 08/24/24 11:19 Delta Troponin T -2.75 ABS# (0-10) L 08/24/24 11:19 Total Protein 6.5 g/dL (6.6-8.7) L 08/24/24 09:44 Albumin 4.3 g/dL (3.5-5.2) 08/24/24 09:44 Globulin 2.2 g/dL (1.3-4.6) 08/24/24 09:44 Urine Color Yellow (Yellow) 08/24/24 11:07 Urine Appearance Clear (CLEAR) 08/24/24 11:07 Urine pH 6 (5-7) 08/24/24 11:07 Ur Specific [place] 1.010 (1.005-1.030) 08/24/24 11:07 Urine Protein Neg (Negative) 08/24/24 11:07 Urine Glucose (UA) 4+ (Normal) H 08/24/24 11:07 Urine Ketones Negative (Negative) 08/24/24 11:07 Urine Blood Neg (Negative) 08/24/24 11:07 Urine Nitrate Negative (Negative) 08/24/24 11:07 Urine Bilirubin Neg (Negative) 08/24/24 11:07 Urine Urobilinogen Norm mg/dL (Negative) 08/24/24 11:07 Ur Leukocyte Esterase Negative (Negative) 08/24/24 11:07 Amorphous Sediment Not Reportable 08/24/24 11:07 All radiology interpretation(s) finalized by discharge Discharge Plan Discharge Patient Disposition: Home Clinical Impression: Atypical chest pain, Sleep apnea Condition: Stable Prescriptions: New aspirin 81 mg tablet,delayed release (DR/EC) 81 mg PO DAILY Qty: 30 0RF isosorbide mononitrate 30 mg tablet extended release 24 hr 30 mg PO DAILY Qty: 30 0RF No Action dapagliflozin propanediol [Farxiga] 5 mg tablet 5 mg PO QAM atorvastatin 20 mg tablet 20 mg PO DAILY glimepiride 4 mg tablet 4 mg PO DAILY losartan 50 mg tablet 50 mg PO DAILY prednisone 10 mg tablet 10 mg PO DAILY PRN (Reason: 20ds) hydrocodone-acetaminophen 7.5-325 mg tablet 1 tab PO BID PRN (Reason: Pain) paroxetine HCl 40 mg tablet 40 mg PO DAILY lamotrigine 100 mg tablet 100 mg PO DAILY Ozempic 1 mg/dose (4 mg/3 mL) pen injector 1 mg SUBCUT Q7D Rx Instructions: Jac Discharge Orders: Discharge ED (Routine); Ordered 08/24/24 Ordered By: Julien Taylor Referrals: John Perez MD [Primary Care Provider] - Discharge Diet: Diabetic Discharge Activity: Increase activity as tolerated Patient Instructions: Opioid Safety, Pain Management Activity Restrictions/Additional Instructions: Thank you for choosing [facility] for your healthcare needs today. It is very important that you follow up as instructed or that you return to the Emergency Department should you have concerns or if your condition changes or worsens in any way. You were seen in the emergency room with a complaint of chest discomfort that is worse with deep inspiration. Your cardiac enzymes did not elevate. There are some changes that appear chronic. EKG with there are no acute changes. The character of the pain you described is not typical for acute coronary syndrome. We do recommend you take a baby aspirin daily will set you up for outpatient stress testing and start you on isosorbide mononitrate 30 mg once daily. mobility architect manager will make arrangements with outpatient stress test. Print Language: Mongolian Coding Level of Care Code ED Drapery Estimator for Evan Wayne
[2024-08-24] MEDS: aspirin 81 mg Chew Tablet 324 MG PO (09:52)
[2024-08-24 09:53] LABS: Basophils # 0.1 10^3/uL (0.0-0.1); Basophils % 0.8 %; Eosinophils # 0.1 10^3/uL (0.0-0.8); Eosinophils % 1.1 %; Hematocrit 44.6 % (37-53); Lymphocytes # 1.4 10^3/uL (0.8-4.8); Lymphocytes % 22.1 %; Mean Corpuscular HGB Conc 33.9 g/dL (30-55); Mean Corpuscular Hemoglobin 28.9 pg (27-33); Mean Corpuscular Volume 85.4 fl (82-101); Mean Platelet Volume 9.2 fL (7.4-10.4); Monocytes # 0.5 10^3/uL (0.2-0.9); Monocytes % 8.4 %; Neutrophils # 4.23 10^3/uL (1.8-7.7); Neutrophils % 67.3 %; Nucleated Red Blood Cells % 0 %; Platelet Count 192 10^3/cmm (157-399); Red Blood Count 5.22 10^6/uL (3.85-5.65); Red Cell Distribution Width 12.6 % (12.1-15.1); White Blood Count 6.29 10^3/uL (3.29-11.43)
[2024-08-24 10:19] LABS: Alanine Aminotransferase 46 U/L (0-41); Albumin Level 4.3 g/dL (3.5-5.2); Alkaline Phosphatase 74 U/L (40-130); Aspartate Amino Transferase 29 U/L (0-40); Blood Urea Nitrogen 13 mg/dL (6-20); Calcium 9.5 mg/dL (8.5-10.5); Carbon Dioxide 25 mmol/L (22-29); Chloride 98 mmol/L (98-107); Creatinine Clr Calc Pharmacy 166.0834; Globulin 2.2 g/dL (1.3-4.6); Glomerular Filtration Rate 89.7 mL/min (90-130); Glucose 175 mg/dL (65-115); Osmolality Calculated 284 mOsm/kg (285-295); Sodium 135 mmol/L (136-145); Total Bilirubin 0.3 mg/dL (0.15-1.2); Total Protein 6.5 g/dL (6.6-8.7)
[2024-08-24 10:20] LABS: Troponin(5th) Baseline 14 ng/L (0-15)
[2024-08-24 10:23] LABS: Anion Gap 16.5 (5-19); Potassium 4.5 mmol/L (3.5-5.1)
[2024-08-24 11:20] LABS: Add Urine Microscopic? NO
[2024-08-24 11:28] LABS: Bilirubin Urine Neg (Negative); Blood Urine Neg (Negative); Glucose Urine UA 4+ (Normal); Ketones Urine Negative (Negative); Leukocyte Esterase Urine Negative (Negative); Nitrate Urine Negative (Negative); Protein Urine Neg (Negative); Urine Appearance Clear (CLEAR); Urine Color Yellow (Yellow); Urobilinogen Urine Norm (Negative); pH Urine 6 (5-7)
[2024-08-24 11:29] LABS: Charge for UA Resulting for Rev
--- NOTE | 2024-08-24 11:39 | ECG_ITS ---
[facility] Test Date: 2024-08-24 Pat Name: Hayder Laureano Department: Room: Gender: Male Elevator Erector: : 1975 Requested By: Julien Chicas Order Number: [id number] Reading MD: RALPH NUNES Measurements Intervals [place] Rate: 72 P: 16 MN: 174 QRS: 24 QRSD: 135 T: -25 QT: 372 QTc: 409 Interpretive Statements SINUS RHYTHM RIGHT BUNDLE BRANCH BLOCK [120+ ms QRS DURATION, UPRIGHT V1, 40+ ms S IN I/aVL/V4/V5/V6] MODERATE T-WAVE ABNORMALITY, CONSIDER LATERAL ISCHEMIA [-0.1+ mV T-WAVE IN I/aVL/V5/V6] Compared to ECG 08/24/2024 08:56:45 No significant changes Electronically Signed On 08-27-2024 21:55:36 CDT by RALPH NUNES [email or web address]
[2024-08-24 11:47] LABS: Troponin 5 2HR 11.25 ng/L (0-15)
[2024-08-24 11:50] LABS: Troponin 5 2HR Delta -2.75 ABS# (0-10)
== END 2024-08-24 13:12 | disposition home or self-care (01) ==
PROVIDERS: Emergency Provider Family Medicine; PCP Family Medicine
DX: R07.89 Other chest pain (principal); G47.30 Sleep apnea, unspecified
CPT/HCPCS: 36415; 71045; 80053; 81003; 84484; 85025; 93005; 99285; J9999

== ENCOUNTER 2024-11-06 15:41 | Outpatient (CLI) | payer OTHER, SELFPAY | END 2024-11-06 15:42 | disposition home or self-care (01) | LOC: SLEEP 15:43 | PROVIDERS: PCP Family Medicine; Visit Provider Family Medicine | DX: G47.33 Obstructive sleep apnea (adult) (pediatric) (principal); G47.36 Sleep related hypoventilation in conditions classified elsewhere | CPT/HCPCS: G0399 ==